=== PATIENT | male | born 1995 ===

== ENCOUNTER → 2023-11-14 | Outpatient (REF) | payer OTHER ==
[2023-11-14 12:00] LABS: SEMEN APPEARANCE OPAQUE (OPAQUE); SEMEN VISCOSITY VISCOUS (LIQUID); SEMEN VOLUME 1.2 ml (2.0-5.0)
[2023-11-14 12:01] LABS: SPERM CONCENTRATION 38.6 M/ml (>=15.0); WBC CONCENTRATION >1 M/ml (<=1 M/ml)
== END ==
LOC: M LAB REF 10:21
PROVIDERS: ATTEND Family Medicine
DX: N46.9 Male infertility, unspecified (principal)